=== PATIENT | female | born 1970 | race Caucasian/White ===

== ENCOUNTER 2017-11-13 08:28 | Day surgery (SDC) | payer OTHER ==
[~2017-11-13 08:28] MED LIST: AMOX500 PO; CARB100ER PO; CARB200; DOC250 PO; ESCI10; ESCI20 PO; HYDACE5 PO; MAGCIT300 PO
[2017-11-15] MEDS ORDERED: GABA300 PO (11:58)
[2017-11-15] MEDS ORDERED: NAPR220 (11:58)
[2017-11-15] MEDS ORDERED: FIBER SUPPLEMENT (11:59)
[2017-11-15] MEDS ORDERED: TUMERIC (11:59)
== END 2017-11-13 22:48 | disposition home or self-care (01) ==
LOC: MOI US 08:28
PROC: 0HBU3ZX Excision of Left Breast, Percutaneous Approach, Diagnostic (ICD-10-PCS; principal; 2017-11-13)
DX: N60.82 Other benign mammary dysplasias of left breast (principal); N60.22 Fibroadenosis of left breast
CPT/HCPCS: 19083; 77065; 88305; A4648

== ENCOUNTER 2017-11-16 08:28 | Day surgery (SDC) | payer OTHER ==
[~2017-11-16] VITALS: Ht 162.6 cm; Wt 110.2 kg
[~2017-11-16 08:28] MED LIST changes: +FIBER SUPPLEMENT; +GABA300 PO; +NAPR220; +TUMERIC
== END 2017-11-16 10:36 | disposition home or self-care (01) ==
LOC: ORSCMMR 08:28 → ORD 09:30 → ORSCMMR 09:30
PROVIDERS: Internal Medicine Gastroenterology
PROC: 0DBM8ZX Excision of Descending Colon, Via Natural or Artificial Opening Endoscopic, Diagnostic (ICD-10-PCS; principal; 2017-11-16 09:30)
DX: K62.5 Hemorrhage of anus and rectum (principal); D12.4 Benign neoplasm of descending colon; K64.8 Other hemorrhoids; G40.909 Epilepsy, unspecified, not intractable, without status epilepticus; Z79.899 Other long term (current) drug therapy; E66.01 Morbid (severe) obesity due to excess calories
CPT/HCPCS: 88305; J2250; J3010; J7120

== ENCOUNTER → 2020-01-01 | Outpatient (CLI) | payer OTHER ==
[~2020-01-01] MED LIST changes: +ACET500 PO; +BARIATRIC MVI PO; +CALCIUM PO; +FIBER CAPSULES PO; +Glucosamine Co1 EAC1 PO; +JOINT SUPPORT PO; +Percocet 5-3251 EACH PO; +ROWEEPRA500 MG PO; +VITAMIN B125000 MC1 PO; +XARELTO20 MG PO
[2020-01-02 13:10] LABS: HPV 16 Negative (Negative); HPV 18 Negative (Negative); HPV OTHER HR TYPES Negative (Negative)
== END | disposition home or self-care (01) ==
LOC: LAB UCHC 14:37 → LAB SHORT 14:37
PROVIDERS: Physician Assistant
DX: Z01.419 Encounter for gynecological examination (general) (routine) without abnormal findings (principal)
CPT/HCPCS: 87624; G0123

== ENCOUNTER 2021-10-12 07:21 | Day surgery (SDC) | payer OTHER ==
[~2021-10-12] VITALS: Ht 162.6 cm; Wt 63.7 kg
--- NOTE | 2021-10-12 09:21 | NUR ---
10/12/21 0921 SALAZAR MIRAMONTES INTERSCALINE BLOCK COMPLETED WITH DR. DELGADO AND STUDENT AT BEDSIDE. O2 SATS @ 100% THROUGHOUT PROCEDURE.
== END 2021-10-12 12:27 | disposition home or self-care (01) ==
LOC: ORSCSDS 07:21
PROVIDERS: Orthopaedic Surgery
PROC: 0LM14ZZ Reattachment of Right Shoulder Tendon, Percutaneous Endoscopic Approach (ICD-10-PCS; principal; 2021-10-12 08:30)
PROC: 0RHJ48Z Insertion of Spacer into Right Shoulder Joint, Percutaneous Endoscopic Approach (ICD-10-PCS; principal; 2021-10-12 08:30)
PROC: 0RNJ4ZZ Release Right Shoulder Joint, Percutaneous Endoscopic Approach (ICD-10-PCS; principal; 2021-10-12 08:30)
DX: M75.121 Complete rotator cuff tear or rupture of right shoulder, not specified as traumatic (principal); M75.21 Bicipital tendinitis, right shoulder; M75.41 Impingement syndrome of right shoulder; M19.011 Primary osteoarthritis, right shoulder; G40.909 Epilepsy, unspecified, not intractable, without status epilepticus; Z79.899 Other long term (current) drug therapy
CPT/HCPCS: 29827; 29826; C9781; C1713; C1889; J0171; J0690; J1100; J2250; J2370; J2405; J2704; J3010; J7120

== ENCOUNTER → 2022-09-14 | Outpatient (CLI) | payer OTHER ==
[2022-09-14 18:41] LABS: Source, Urine Clean Catch
[2022-09-14 20:12] LABS: Appearance, Urine Hazy (Clear); Bilirubin, Urine Neg (Neg); Blood, Urine Neg (Neg); Color, Urine Yellow (P-Yellow); Glucose Qualitative, Urine Neg (Neg); Ketones, Urine Neg (Neg); Leukocyte Esterase, Urine 2+ (Neg); Nitrite, Urine Neg (Neg); Protein, Urine Neg (Neg); Specific Gravity, Urine 1.015 (1.003-1.022); Urobilinogen, Urine NORM (Normal)
[2022-09-14 20:47] LABS: Mucus Light (0-Heavy); Squamous Epithelial Cells Mod /hpf (Few)
[2022-09-14 20:48] LABS: Amorphous Light (0-Heavy); Bacteria Many /hpf; Red Blood Cells, Urine 0-2 /hpf (0-2)
== END | disposition home or self-care (01) ==
LOC: LAB SHORT 15:05 → LAB 15:05
PROVIDERS: Physician Assistant
DX: R93.7 Abnormal findings on diagnostic imaging of other parts of musculoskeletal system (principal)
CPT/HCPCS: 81001

== ENCOUNTER → 2022-10-28 | Outpatient (CLI) | payer OTHER ==
[2022-11-01 10:10] LABS: M-SPIKE, % Not Observed % (Not Observed); PROTEIN,TOTAL,URINE 5.2 mg/dL (Not Estab.)
== END ==
LOC: LAB 07:00 → LAB SHORT 07:00 → LAB FUT 10-20 14:45
PROVIDERS: Internal Medicine Hematology & Oncology
DX: R80.3 Bence Jones proteinuria (principal)
CPT/HCPCS: 81050; 84166; 86335

== ENCOUNTER → 2023-01-30 | Outpatient (CLI) | payer OTHER | LOC: LAB 19:02 → LAB SHORT 19:02 | DX: R30.0 Dysuria (principal) | CPT/HCPCS: 87086 ==

== ENCOUNTER → 2024-09-04 | Outpatient (CLI) | payer OTHER | LOC: LAB 14:13 → LAB SHORT 14:13 | DX: N39.0 Urinary tract infection, site not specified (principal); R31.9 Hematuria, unspecified | CPT/HCPCS: 87086 ==

== ENCOUNTER 2024-12-16 09:04 | Day surgery (SDC) | payer OTHER ==
[2024-12-16] VITALS (15 sets, daily range): BP systolic 97–116; BP diastolic 64–77
[~2024-12-16] VITALS: Ht 160 cm; Wt 70.4 kg
[~2024-12-16 09:04] MED LIST changes: +TRAM50 PO
--- NOTE | 2024-12-16 10:33 | NUR ---
12/16/24 1033 Ronel Torres CONFIRMED AND REVIEWED H&P, MEDCICATIONS, ALLERGIES, MEDICAL HISTORY, RESPIRATORY HISTORY, VITAL SIGNS, 3-LEAD EKG, CONSENTS, AND PHYSICIAN ORDERS. PATIENT CONFIRMS NPO STATUS AND AGREES WITH SCHEDULED PROCEDURE. MONITOR INTACT WITH CONTINUOUS PULSE OXIMETRY, CAPNOGRAPHY, 3-LEAD EKG, INTERMITTENT BP. SUPPLEMENTAL O2 TO BE TITRATED THROUGHOUT PROCEDURE TO MAINTAIN O2 SATURATION ABOVE 90%. PATIENT DETERMINED TO BE ASA APPROPRIATE FOR PROPOFOL SEDATION PRIOR TO START OF PROCEDURE BY DR. MTZ. MALLAMPATI CLASS 1 AIRWAY: COMPLETE VISULATIZATION OF THE SOFT PALATE.
--- NOTE | 2024-12-16 10:35 | NUR ---
Ambulatory in Day Surgery. Patient confirms NPO status and agrees with scheduled surgery. History, Chart, Medications and Allergies reviewed before start of procedure. Lungs clear T/O to Auscultation. Patient states colon prep results clear. Patient States Post-Procedure ride home has been arranged.
--- NOTE | 2024-12-16 11:39 | NUR ---
Patient up to Ambulate independently. Gait steady. Discharge instructions reviewed with patient. Patient verbalizes understanding. Copy given to patient to take home. Pt tolerating PO liquids without difficulty. Patient States Post-Procedure ride home has been arranged. IV removed, dressing in place. Pt educated when to remove dressing. Discharged via wheelchair to private car for ride home.
== END 2024-12-16 11:02 | disposition home or self-care (01) ==
LOC: ORSCMMR 09:04 → ORD 10:00 → ORSCMMR 10:15
PROVIDERS: Internal Medicine Gastroenterology
PROC: 0DJD8ZZ Inspection of Lower Intestinal Tract, Via Natural or Artificial Opening Endoscopic (ICD-10-PCS; principal; 2024-12-16 10:15)
DX: Z12.11 Encounter for screening for malignant neoplasm of colon (principal); K64.4 Residual hemorrhoidal skin tags; Z86.0100 Personal history of colon polyps, unspecified; G40.909 Epilepsy, unspecified, not intractable, without status epilepticus; Z98.84 Bariatric surgery status; Z87.820 Personal history of traumatic brain injury; Z79.899 Other long term (current) drug therapy
CPT/HCPCS: J2704; J7120